=== PATIENT | male | born 2000 | race Two or more races ===

== ENCOUNTER 2021-12-29 01:50 | Emergency (ER) | payer SELFPAY ==
[~2021-12-29] VITALS: Ht 177.8 cm; Wt 66.9 kg
[2021-12-29 02:24] LABS: BASOPHILS % (AUTO) 0.4 % (0.0-2.0); COVID AG,FIA SOURCE NASOPHARYNGEAL; EOSINOPHILS % (AUTO) 0.1 % (1.0-6.0); HEMATOCRIT 45.1 % (41-53); HEMOGLOBIN 15.2 g/dL (13.5-17.5); LYMPHOCYTES # (AUTO) 2.6 K/uL (1.0-4.8); LYMPHOCYTES % (AUTO) 21.1 % (22.0-44.0); MEAN CORPUSCULAR HEMOGLOBIN 30.6 pg (26.0-34.0); MEAN CORPUSCULAR HGB CONC 33.7 G/dL (31.0-37.0); MEAN CORPUSCULAR VOLUME 91 fL (80-100); MONOCYTES # (AUTO) 0.7 K/uL (0.1-1.0); MONOCYTES % (AUTO) 5.4 % (2.0-9.0); PLATELET COUNT (AUTO) 244 K/uL (150-450); RED BLOOD CELL COUNT(AUTO) 4.96 MIL/uL (4.50-5.90); RED CELL DISTRIBUTION WIDTH 13.7 % (11.5-14.5)
[2021-12-29 02:34] LABS: ALANINE AMINOTRANSFERASE 24 U/L (12-78); ALBUMIN 4.5 g/dL (3.4-5.0); ALKALINE PHOSPHATASE 88 U/L (46-116); AMPHET/METH SCREEN,URINE NEGATIVE (NEGATIVE); ANION GAP 15 mmol/L (8-16); ASPARTATE AMINOTRANSFERASE 38 U/L (15-37); BARBITURATE SCREEN, URINE NEGATIVE (NEGATIVE); BENZODIAZEPINES SCREEN,URINE NEGATIVE (NEGATIVE); BILIRUBIN,TOTAL 0.9 mg/dL (0.1-1.0); CANNABINOID SCREEN,URINE POSITIVE (NEGATIVE); CARBON DIOXIDE 26 mmol/L (22-29); CHLORIDE 100 mmol/L (98-107); COCAINE SCREEN,URINE NEGATIVE (NEGATIVE); CREATININE 1.42 mg/dL (0.60-1.30); GLOMERULAR FILTR. RATE CALC > 60 mL/min (>60); GLUCOSE,RANDOM 142 mg/dL (70-110); METHADONE SCREEN, URINE NEGATIVE (NEGATIVE); OPIATE SCREEN,URINE NEGATIVE (NEGATIVE); SODIUM SERUM 141 mmol/L (136-145); TOTAL PROTEIN, SERUM 8.3 g/dL (6.4-8.2); UREA NITROGEN, BLOOD 11 mg/dL (7-18)
[2021-12-29 02:35] LABS: PHENCYCLIDINE SCREEN,URINE NEGATIVE (NEGATIVE)
[2021-12-29 03:28] LABS: APPEARANCE,URINE CLEAR (CLEAR); BILIRUBIN,URINE NEGATIVE (NEGATIVE); GLUCOSE, URINE (UA) NEGATIVE (NEGATIVE); KETONES,URINE NEGATIVE (NEGATIVE); LEUKOCYTE ESTERASE ,URINE NEGATIVE (NEGATIVE); NITRATE,URINE NEGATIVE (NEGATIVE); OCCULT BLOOD,URINE NEGATIVE (NEGATIVE); PROTEIN,URINE NEGATIVE (NEGATIVE); SPECIFIC GRAVITIY, URINE 1.006 (1.003-1.030); UROBILINOGEN,URINE <=1.0 mg/dL (<=1.0)
[2021-12-29 03:31] LABS: CREATINE KINASE, TOTAL ONLY 979 U/L (39-308)
[2021-12-29 03:40] LABS: BACTERIA,URINE None Seen /HPF (None Seen); HYALINE CASTS, URINE 0-2 /LPF (None Seen); RBC,URINE 0-2 /HPF (0-2); WBC,URINE 0-2 /HPF (0-5)
[2021-12-29] MEDS ORDERED: POTASSIUM CHLORIDE 20 MEQ ER TABLET PO ONE (06:15)
[2021-12-29 11:33] VITALS: BP 101/72
== END 2021-12-29 11:43 | disposition home or self-care (01) ==
LOC: EMS 01:52
DX: G92.9 Unspecified toxic encephalopathy (principal); F10.129 Alcohol abuse with intoxication, unspecified; Y90.8 Blood alcohol level of 240 mg/100 ml or more; Z20.822 Contact with and (suspected) exposure to COVID-19
CPT/HCPCS: 36415; 70450; 72125; 80053; 80307; 81001; 82550; 85025; 87426; 99285; G0480